=== PATIENT | female | born 1945 | race Caucasian/White ===

== ENCOUNTER 2016-07-25 20:58 | Emergency (ER) | payer OTHER ==
[~2016-07-25 20:58] MED LIST: ASPIR 8181 MG PO; ASPIRIN CHEWABL81 MG PO; ATIVAN1 MG PO; CRESTOR10 MG PO; ELIQUIS5 MG PO; GLUCOPHAGE 500500 MG PO; K-DUR TAB 20 M20 MEQ PO; LASIX40 MG PO; LOPRESSOR100 MG PO; METFORMIN HCL500 MG PO; METOPROLOL TAR100 MG PO; NEURONTIN 400400 MG PO; NORCO 5-325 TA1 EACH PO; NORVASC 5 MG TAB5 MG PO; NORVASC5 MG PO; VALIUM 5 MG TAB5 MG PO
[2016-07-25 22:18] LABS: HEMOGLOBIN 13.5 gm/dl (12.3-15.3); RED BLOOD COUNT 4.45 M/UL (4.00-5.10); WHITE BLOOD COUNT 6.4 K/UL (4.5-11.0)
[2016-07-25 22:34] LABS: BUN/CREATININE RATIO 13 (0-10)
== END 2016-07-26 01:42 | disposition home or self-care (01) ==
LOC: ER1 20:58
PROVIDERS: Specialist/Technologist Athletic Trainer
DX: J40 Bronchitis, not specified as acute or chronic (principal); E11.9 Type 2 diabetes mellitus without complications; I10 Essential (primary) hypertension; Z79.82 Long term (current) use of aspirin
CPT/HCPCS: 36415; 71010; 80053; 83880; 85025; 99285

== ENCOUNTER 2016-07-29 20:49 | Emergency (ER) | payer OTHER | END 2016-07-30 00:57 | disposition left against medical advice (07) | LOC: ER1 20:49 | DX: Z53.21 Procedure and treatment not carried out due to patient leaving prior to being seen by health care provider (principal) ==

== ENCOUNTER 2016-09-18 23:27 | Emergency (ER) | payer OTHER | END 2016-09-19 02:37 | disposition home or self-care (01) | LOC: ER1 23:27 | DX: J20.9 Acute bronchitis, unspecified (principal); E11.9 Type 2 diabetes mellitus without complications; I10 Essential (primary) hypertension; I25.10 Atherosclerotic heart disease of native coronary artery without angina pectoris; Z88.0 Allergy status to penicillin; Z88.1 Allergy status to other antibiotic agents; Z88.5 Allergy status to narcotic agent; Z88.6 Allergy status to analgesic agent; Z91.041 Radiographic dye allergy status; Z95.5 Presence of coronary angioplasty implant and graft | CPT/HCPCS: 94640; 94664; 99283 ==

== ENCOUNTER → 2016-10-13 | Outpatient (CLI) | payer OTHER | LOC: MAMO 14:00 | DX: N64.4 Mastodynia (principal); M79.651 Pain in right thigh; M79.661 Pain in right lower leg; Z90.11 Acquired absence of right breast and nipple | CPT/HCPCS: 93926; G0206 ==

== ENCOUNTER → 2020-08-05 | Outpatient (CLI) | payer MEDICARE ==
[~2020-08-05] MED LIST changes: +ALBUTEROL2.5 MG/3 M INH; +ALBUTEROL2.5 MG/3 M NEB; +ALPRAZOLAM0.5 MG PO; +ASPIRIN EC325 MG PO; +BENTYL 20MG TAB20 MG PO; +BRILINTA 90 MG90 MG PO; +CLEOCIN HCL150 MG PO; +COLACE 100MG C100 MG PO; +CYANOCOBAL1000 MCG/1 INJ; +DOXYCYCLINE HY100 MG PO; +DULCOLAX10 MG PR; +ELIQUIS 2.5 MG2.5 MG PO; +ELIQUIS5 M1 PO; +HUMIBID LA TAB600 MG PO; +IPRAT-ALBUT 0.5-3 ML NEB; +IPRATROPIU0.2 MG/1 M INH; +LASIX 40 MG TAB40 MG PO; +LASIX TAB 20 MG20 MG PO; +LEVAQUIN500 MG PO; +LEVOFLOXACIN500 MG PO; +LISINOPRIL10 MG PO; +LOPRESSOR 25 MG25 MG PO; +LOPRESSOR 50 MG50 MG PO; +LOPRESSOR50 MG PO; +LORTAB 5-325 M1 EACH PO; +MACROBID 100 M100 MG PO; +MINERAL OIL PO; +MUCOMYST 20% 4 M4 ML NEB; +OMNICEF 300 MG300 MG PO; +PANTOPRAZOLE SO40 MG PO; +PREDNISONE20 MG PO; +SILVADENE CREAM20 GM TOP; +TOPROL XL 25 MG25 MG PO; +VITAMIN D21250 MCG PO; +VITAMIN D350 MC3 PO; +ZOFRAN ODT 4 MG4 MG SL; +ZYVOX600 MG PO
== END ==
LOC: EXRD 15:30
DX: R22.41 Localized swelling, mass and lump, right lower limb (principal)
CPT/HCPCS: 93971

== ENCOUNTER 2020-10-03 05:12 | Inpatient (IN) | payer MEDICARE ==
[~2020-10-03] VITALS: Ht 170.2 cm; Wt 123.5 kg
[~2020-10-03 05:12] MED LIST changes: -ALPRAZOLAM0.5 MG PO; -ASPIRIN EC325 MG PO; -CYANOCOBAL1000 MCG/1 INJ; -ELIQUIS5 M1 PO; -LASIX 40 MG TAB40 MG PO; -LASIX TAB 20 MG20 MG PO; -LOPRESSOR 25 MG25 MG PO; -LOPRESSOR 50 MG50 MG PO; -LOPRESSOR50 MG PO; -TOPROL XL 25 MG25 MG PO; -VITAMIN D21250 MCG PO; -VITAMIN D350 MC3 PO; -ZYVOX600 MG PO
[2020-10-03 05:40] LABS: HEMOGLOBIN 15.4 gm/dl (12.3-15.3); RED BLOOD COUNT 5.02 M/UL (4.00-5.10); WHITE BLOOD COUNT 10.2 K/UL (4.5-11.0)
[2020-10-03 06:02] LABS: BUN/CREATININE RATIO 14 (0-10)
[2020-10-03] MEDS ORDERED: ASPIRIN EC325 MG PO (16:19)
[2020-10-03] MEDS ORDERED: CYANOCOBAL1000 MCG/1 INJ (16:23)
[2020-10-03] MEDS ORDERED: LASIX TAB 20 MG20 MG PO (16:25)
[2020-10-03] MEDS ORDERED: ALPRAZOLAM0.5 MG PO ×2 (16:26→16:27)
[2020-10-03] MEDS ORDERED: VITAMIN D21250 MCG PO (16:29)
[2020-10-04 03:15] LABS: HEMOGLOBIN 14.1 gm/dl (12.3-15.3); RED BLOOD COUNT 4.56 M/UL (4.00-5.10); WHITE BLOOD COUNT 8.7 K/UL (4.5-11.0)
[2020-10-05 03:58] LABS: RED BLOOD COUNT 4.57 M/UL (4.00-5.10); WHITE BLOOD COUNT 8.2 K/UL (4.5-11.0)
[2020-10-06 12:00] LABS: HEMOGLOBIN 14.9 gm/dl (12.3-15.3); RED BLOOD COUNT 4.82 M/UL (4.00-5.10)
[2020-10-07 06:41] LABS: HEMOGLOBIN 14.3 gm/dl (12.3-15.3); RED BLOOD COUNT 4.66 M/UL (4.00-5.10); WHITE BLOOD COUNT 6.5 K/UL (4.5-11.0)
[2020-10-08 06:50] LABS: HEMOGLOBIN 15.8 gm/dl (12.3-15.3); WHITE BLOOD COUNT 8.1 K/UL (4.5-11.0)
[2020-10-08 06:51] LABS: RED BLOOD COUNT 5.15 M/UL (4.00-5.10)
[2020-10-09 04:07] LABS: HEMOGLOBIN 15.1 gm/dl (12.3-15.3); RED BLOOD COUNT 4.88 M/UL (4.00-5.10); WHITE BLOOD COUNT 6.3 K/UL (4.5-11.0)
[2020-10-09] MEDS ORDERED: K-DUR TAB 20 M20 MEQ PO ×2 (15:09→15:14)
[2020-10-09] MEDS ORDERED: LASIX 40 MG TAB40 MG PO (15:09)
== END 2020-10-09 18:17 | disposition home health service (06) | DRG 291 ==
LOC: ER1 05:12 → CDU 08:32 → MED SURG 4 08:32
PROVIDERS: Emergency Medicine; Internal Medicine; Physician Assistant; ADMIT Family Medicine
PROC: B24BZZZ Ultrasonography of Heart with Aorta (ICD-10-PCS; principal; 2020-10-04)
DX: I11.0 Hypertensive heart disease with heart failure (principal); J96.21 Acute and chronic respiratory failure with hypoxia; N30.00 Acute cystitis without hematuria; I48.21 Permanent atrial fibrillation; Z68.41 Body mass index [BMI] 40.0-44.9, adult; E87.2 Acidosis; N17.9 Acute kidney failure, unspecified; Z20.822 Contact with and (suspected) exposure to COVID-19; I50.23 Acute on chronic systolic (congestive) heart failure; B96.1 Klebsiella pneumoniae [K. pneumoniae] as the cause of diseases classified elsewhere; E78.5 Hyperlipidemia, unspecified; I25.10 Atherosclerotic heart disease of native coronary artery without angina pectoris; I71.4 Abdominal aortic aneurysm, without rupture; I27.20 Pulmonary hypertension, unspecified; M19.90 Unspecified osteoarthritis, unspecified site; F41.9 Anxiety disorder, unspecified; E66.01 Morbid (severe) obesity due to excess calories; K43.9 Ventral hernia without obstruction or gangrene; M79.3 Panniculitis, unspecified; I87.2 Venous insufficiency (chronic) (peripheral); I25.5 Ischemic cardiomyopathy; I07.1 Rheumatic tricuspid insufficiency; Z90.49 Acquired absence of other specified parts of digestive tract; Z93.0 Tracheostomy status; Z85.21 Personal history of malignant neoplasm of larynx; Z85.3 Personal history of malignant neoplasm of breast; Z95.5 Presence of coronary angioplasty implant and graft; Z90.11 Acquired absence of right breast and nipple; I25.2 Old myocardial infarction; Z85.42 Personal history of malignant neoplasm of other parts of uterus; Z90.710 Acquired absence of both cervix and uterus; Z88.0 Allergy status to penicillin; Z88.2 Allergy status to sulfonamides; Z88.8 Allergy status to other drugs, medicaments and biological substances; Z88.1 Allergy status to other antibiotic agents; Z91.041 Radiographic dye allergy status; Z91.040 Latex allergy status; Z87.891 Personal history of nicotine dependence; Z80.3 Family history of malignant neoplasm of breast; Z84.89 Family history of other specified conditions; Z79.84 Long term (current) use of oral hypoglycemic drugs; Z79.82 Long term (current) use of aspirin; Z79.899 Other long term (current) drug therapy; Z99.81 Dependence on supplemental oxygen
CPT/HCPCS: ECHO; 0240U; 36415; 51702; 71045; 80048; 80053; 81001; 82550; 82553; 82962; 83605; 83690; 83735; 83874; 83880; 84100; 84484; 85025; 85027; 85610; 85730; 87040; 87077; 87086; 87186; 93005; 93306; 94640; 94760; 96365; 96375; 97162; 97166; 97530; 99285; J1650; J1940; J1956; J2405; J7030

== ENCOUNTER 2020-10-25 03:26 | Observation (INO) | payer MEDICARE ==
[~2020-10-25] VITALS: Ht 170.2 cm; Wt 135.6 kg
[~2020-10-25 03:26] MED LIST changes: +ALPRAZOLAM0.5 MG PO; +ASPIRIN EC325 MG PO; +CYANOCOBAL1000 MCG/1 INJ; +LASIX 40 MG TAB40 MG PO; +LASIX TAB 20 MG20 MG PO; +VITAMIN D21250 MCG PO
[2020-10-25 04:32] LABS: HEMOGLOBIN 16.4 gm/dl (12.3-15.3); RED BLOOD COUNT 5.41 M/UL (4.00-5.10); WHITE BLOOD COUNT 7.6 K/UL (4.5-11.0)
[2020-10-25 04:54] LABS: BUN/CREATININE RATIO 15 (0-10)
[2020-10-25] MEDS ORDERED: LASIX40 MG PO (08:02)
[2020-10-25] MEDS ORDERED: LOPRESSOR 50 MG50 MG PO (08:04)
[2020-10-27] MEDS ORDERED: ZYVOX600 MG PO (12:05)
[2020-10-27] MEDS ORDERED: LOPRESSOR 50 MG50 MG PO (12:29)
[2020-10-27] MEDS ORDERED: ELIQUIS5 M1 PO (12:29)
== END 2020-10-27 16:42 | disposition home health service (06) ==
LOC: ER1 03:26 → CDU 06:04 → PROG CARE 06:04
PROVIDERS: Physician Assistant; ADMIT Internal Medicine Infectious Disease
DX: I48.21 Permanent atrial fibrillation (principal); R10.9 Unspecified abdominal pain; I11.0 Hypertensive heart disease with heart failure; I50.23 Acute on chronic systolic (congestive) heart failure; I25.10 Atherosclerotic heart disease of native coronary artery without angina pectoris; I25.2 Old myocardial infarction; I71.4 Abdominal aortic aneurysm, without rupture; E87.2 Acidosis; Z20.822 Contact with and (suspected) exposure to COVID-19; E11.9 Type 2 diabetes mellitus without complications; I87.2 Venous insufficiency (chronic) (peripheral); D69.6 Thrombocytopenia, unspecified; E87.6 Hypokalemia; E83.42 Hypomagnesemia; N39.0 Urinary tract infection, site not specified; B95.2 Enterococcus as the cause of diseases classified elsewhere; E78.5 Hyperlipidemia, unspecified; K43.9 Ventral hernia without obstruction or gangrene; K42.9 Umbilical hernia without obstruction or gangrene; M19.90 Unspecified osteoarthritis, unspecified site; F41.9 Anxiety disorder, unspecified; I25.5 Ischemic cardiomyopathy; I27.20 Pulmonary hypertension, unspecified; I07.1 Rheumatic tricuspid insufficiency; E66.01 Morbid (severe) obesity due to excess calories; Z68.42 Body mass index [BMI] 45.0-49.9, adult; Z85.21 Personal history of malignant neoplasm of larynx; Z85.3 Personal history of malignant neoplasm of breast; Z90.11 Acquired absence of right breast and nipple; Z85.42 Personal history of malignant neoplasm of other parts of uterus; Z90.710 Acquired absence of both cervix and uterus; Z93.0 Tracheostomy status; Z95.5 Presence of coronary angioplasty implant and graft; Z87.891 Personal history of nicotine dependence; Z79.84 Long term (current) use of oral hypoglycemic drugs; Z79.82 Long term (current) use of aspirin; Z79.899 Other long term (current) drug therapy; Z90.49 Acquired absence of other specified parts of digestive tract; Z88.0 Allergy status to penicillin; Z88.1 Allergy status to other antibiotic agents; Z88.2 Allergy status to sulfonamides; Z88.4 Allergy status to anesthetic agent; Z88.6 Allergy status to analgesic agent; Z91.040 Latex allergy status; Z91.041 Radiographic dye allergy status
CPT/HCPCS: 36415; 71045; 80048; 80053; 81001; 82550; 82553; 82962; 83605; 83690; 83735; 84484; 85025; 85610; 87077; 87086; 87186; 93005; 94640; 94664; 94760; 96374; 99285; G0378; U0002

== ENCOUNTER 2020-11-13 12:19 | Inpatient (IN) | payer MEDICARE ==
[~2020-11-13] VITALS: Ht 170.2 cm; Wt 122.5 kg
[~2020-11-13 12:19] MED LIST changes: +ELIQUIS5 M1 PO; +LOPRESSOR 50 MG50 MG PO; +ZYVOX600 MG PO
[2020-11-13 14:17] LABS: HEMOGLOBIN 16.1 gm/dl (12.3-15.3); RED BLOOD COUNT 5.41 M/UL (4.00-5.10); WHITE BLOOD COUNT 8.9 K/UL (4.5-11.0)
[2020-11-13 14:42] LABS: BUN/CREATININE RATIO 15 (0-10)
[2020-11-14] MEDS ORDERED: TOPROL XL 25 MG25 MG PO (00:37)
[2020-11-14] MEDS ORDERED: VITAMIN D350 MC3 PO (00:38)
[2020-11-14 02:49] LABS: HEMOGLOBIN 14.5 gm/dl (12.3-15.3); RED BLOOD COUNT 4.91 M/UL (4.00-5.10); WHITE BLOOD COUNT 8.5 K/UL (4.5-11.0)
[2020-11-14 03:12] LABS: BUN/CREATININE RATIO 17 (0-10)
--- NOTE | 2020-11-15 01:39 | NUR ---
PATIENT REFUSED BEING STUCK FOR LABS AT THIS TIME. LAB REQUESTED TO TRY AGAIN LATER.
[2020-11-15] MEDS ORDERED: LOPRESSOR50 MG PO (15:56)
[2020-11-15] MEDS ORDERED: LOPRESSOR 25 MG25 MG PO ×2 (19:57→20:08)
[2020-11-16] MEDS ORDERED: LOPRESSOR 25 MG25 MG PO (09:24)
== END 2020-11-16 13:36 | disposition home or self-care (01) | DRG 309 ==
LOC: ER1 12:19 → PROG CARE 15:24 → CDU 15:24 → PROG CARE 17:05
PROVIDERS: Emergency Medicine; Physician Assistant; ADMIT Internal Medicine
DX: I48.91 Unspecified atrial fibrillation (principal); J95.01 Hemorrhage from tracheostomy stoma; I50.22 Chronic systolic (congestive) heart failure; R04.2 Hemoptysis; I11.0 Hypertensive heart disease with heart failure; Z20.822 Contact with and (suspected) exposure to COVID-19; I25.10 Atherosclerotic heart disease of native coronary artery without angina pectoris; I25.5 Ischemic cardiomyopathy; E11.9 Type 2 diabetes mellitus without complications; E78.5 Hyperlipidemia, unspecified; Y83.9 Surgical procedure, unspecified as the cause of abnormal reaction of the patient, or of later complication, without mention of misadventure at the time of the procedure; E66.01 Morbid (severe) obesity due to excess calories; J44.9 Chronic obstructive pulmonary disease, unspecified; F41.9 Anxiety disorder, unspecified; I87.8 Other specified disorders of veins; Z88.2 Allergy status to sulfonamides; Z88.5 Allergy status to narcotic agent; Z88.0 Allergy status to penicillin; Z88.6 Allergy status to analgesic agent; Z88.1 Allergy status to other antibiotic agents; Z91.040 Latex allergy status; Z09 Encounter for follow-up examination after completed treatment for conditions other than malignant neoplasm; Z79.01 Long term (current) use of anticoagulants; Z95.5 Presence of coronary angioplasty implant and graft; Z91.041 Radiographic dye allergy status; Z90.710 Acquired absence of both cervix and uterus; Z85.3 Personal history of malignant neoplasm of breast; Z85.21 Personal history of malignant neoplasm of larynx; Z90.49 Acquired absence of other specified parts of digestive tract; Z90.11 Acquired absence of right breast and nipple; Z80.3 Family history of malignant neoplasm of breast; Z82.49 Family history of ischemic heart disease and other diseases of the circulatory system; Z87.891 Personal history of nicotine dependence; Z98.890 Other specified postprocedural states; Z91.14 Patient's other noncompliance with medication regimen
CPT/HCPCS: 36415; 71046; 80048; 80053; 82550; 82553; 82962; 83735; 83874; 84484; 85025; 85610; 85730; 93005; 94640; 94664; 94760; 99284; J0456; J7030; U0002

== ENCOUNTER 2021-06-17 17:40 | Emergency (ER) | payer MEDICARE ==
[~2021-06-17 17:40] MED LIST changes: +LOPRESSOR 25 MG25 MG PO; +LOPRESSOR50 MG PO; +TOPROL XL 25 MG25 MG PO; +VITAMIN D350 MC3 PO
== END 2021-06-17 18:50 | disposition left against medical advice (07) ==
LOC: ER1 17:40
DX: L81.9 Disorder of pigmentation, unspecified (principal); M79.89 Other specified soft tissue disorders; R60.0 Localized edema
CPT/HCPCS: 99282

== ENCOUNTER 2021-06-18 18:54 | Emergency (ER) | payer MEDICARE ==
[2021-06-18 19:58] LABS: HEMOGLOBIN 17.6 gm/dl (12.3-15.3); RED BLOOD COUNT 5.49 M/UL (4.00-5.10); WHITE BLOOD COUNT 11.1 K/UL (4.5-11.0)
== END 2021-06-18 21:15 | disposition left against medical advice (07) ==
LOC: ER1 18:54
PROVIDERS: Physician Assistant
DX: R23.9 Unspecified skin changes (principal)
CPT/HCPCS: 85025; 85610; 85730; 99281